=== PATIENT | female | born 1995 | race Two or more races ===

== ENCOUNTER 2022-11-26 17:07 | Emergency (ER) | payer MEDICAID, OTHER ==
[~2022-11-26] VITALS: Ht 167.6 cm; Wt 63.6 kg
[2022-11-26 17:45] LABS: Basophils # (auto) 0.1 10 ^3/uL (0-0.2); Basophils % (auto) 0.8 % (0.0-2.0); Eosinophils # (auto) 0.3 10 ^3/uL (0-0.8); Eosinophils % (auto) 2.4 % (0.0-7.0); Hematocrit 42.9 % (36.0-46.0); Hemoglobin 14.3 g/dL (12.2-16.2); Lymphocytes # (auto) 2.1 10 ^3/uL (0.4-5.4); Mean Corpuscular Hemoglobin 29.7 pg (28.0-32.0); Mean Corpuscular Hgb Conc. 33.3 g/dL (32.0-36.0); Mean Corpuscular Volume 89.3 fL (80.0-100.0); Monocytes # (auto) 0.6 10 ^3/uL (0-1.3); Monocytes % (auto) 5.3 % (0.0-12.0); Neutrophils # (auto) 7.9 10 ^3/uL (1.6-8.6); Neutrophils % (auto) 72.5 % (37.0-80.0); Nucleated Red Blood Cells % 0.1 %; Red Blood Cells 4.81 10^6/uL (4.0-5.20); Red Cell Distribution Width 12.9 % (11.8-14.3); White Blood Cell 10.9 10^3/uL (4.4-10.8)
[2022-11-26 18:01] LABS: Albumin 4.5 g/dL (3.4-5.0); Calcium 9.3 mg/dL (8.5-10.1); Magnesium 2.4 mg/dL (1.6-2.6); Potassium 3.6 mmol/L (3.5-5.1)
[2022-11-26 18:04] LABS: BUN/Creatinine Ratio 14.8 (10.0-20.0); Bilirubin, Total 0.4 mg/dL (0.2-1.0); Total Protein 7.9 g/dL (6.4-8.2)
[2022-11-26 18:12] LABS: Partial Thromboplastin Time 23.1 sec (24.6-33.4)
[2022-11-26 21:45] LABS: Urine Bacteria NONE SEEN /hpf (None Seen); Urine Blood Negative /uL (Negative); Urine Specific Gravity 1.017 (1.001-1.035); Urine WBC 4 /hpf (0 - 5)
[2022-11-27] MEDS ORDERED: LACTATED RINGER'S 1,000 ML IV ONE
[2022-11-27] MEDS ORDERED: LORazepam 2MG/ML-1ML VIAL IV ONE
[2022-11-27 04:50] VITALS: BP 119/87
[2022-11-27] MEDS ORDERED: LORazepam 0.5 MG TAB PO ONE (05:15)
== END 2022-11-27 06:46 | disposition home or self-care (01) ==
LOC: EDBD 17:07 → ER 17:07
DX: N17.9 Acute kidney failure, unspecified (principal); F41.9 Anxiety disorder, unspecified; R73.9 Hyperglycemia, unspecified; E87.8 Other disorders of electrolyte and fluid balance, not elsewhere classified; D72.829 Elevated white blood cell count, unspecified; R07.89 Other chest pain
CPT/HCPCS: 36415; 71045; 80053; 81001; 83735; 83880; 84484; 85025; 85610; 85730; 93005; 96361; 96374; 99285; J2060